=== PATIENT | male | born 1965 | race Caucasian/White ===

== ENCOUNTER 2021-05-20 07:02 | Day surgery (SDC) | payer SELFPAY ==
[~2021-05-20 07:02] MED LIST: CARAFATE1 GM PO; PANTOPRAZOLE SO40 M1 PO
[2021-05-20 09:59] VITALS: BP 144/73
--- NOTE | 2021-05-27 12:22 | NUR ---
PER MD ORDER, PATIENT NOTIFIED OF PATHOLOGY 07/20/20 RESULTS, RECOMMENDED REPEAT COLONOSCOPY IN 3 YEARS. PATIENT VERBALIZED UNDERSTANDING OF EDUCATION PROVIDED. ADVISED TO CONTACT OFFICE IF CHANGES IN SYMPTOMS OR OTHER ISSUES OCCURED. NOTE AND RESULTS FORWARDED TO PCP FOR CONTINUITY OF CARE.
== END 2021-05-20 09:45 | disposition home or self-care (01) | DRG 379 ==
LOC: ENDO 07:02 → ORM 09:30 → ENDO 09:45
PROVIDERS: ATTEND Surgery
PROC: 0DBK8ZX Excision of Ascending Colon, Via Natural or Artificial Opening Endoscopic, Diagnostic (ICD-10-PCS; principal; 2021-05-20)
PROC: 0DB48ZX Excision of Esophagogastric Junction, Via Natural or Artificial Opening Endoscopic, Diagnostic (ICD-10-PCS; 2021-05-20)
DX: K92.2 Gastrointestinal hemorrhage, unspecified (principal); R13.10 Dysphagia, unspecified; D12.2 Benign neoplasm of ascending colon; K64.8 Other hemorrhoids; K22.9 Disease of esophagus, unspecified; Z86.73 Personal history of transient ischemic attack (TIA), and cerebral infarction without residual deficits

== ENCOUNTER 2022-06-27 12:46 | Inpatient (IN) | payer SELFPAY ==
[2022-06-27] VITALS (17 sets, daily range): BP systolic 85–147; BP diastolic 45–81
[~2022-06-27] VITALS: Ht 170.2 cm; Wt 83.0 kg
--- NOTE | 2022-06-27 13:00 | NUR ---
PATIENT TO ROOM 13
--- NOTE | 2022-06-27 13:15 | NUR ---
PATIENT IN NEED OF FREQUENT REDIRECTION.
[2022-06-27 13:20] LABS: URINE BILIRUBIN - DIPSTICK NEGATIVE (NEGATIVE); URINE BLOOD DIPSTICK SMALL (NEGATIVE); URINE COLOR YELLOW; URINE GLUCOSE - DIPSTICK >=1000 mg/dL (NEGATIVE); URINE KETONE NEGATIVE (NEGATIVE); URINE LEUK ESTERASE NEGATIVE (NEGATIVE); URINE PROTEIN - DIPSTICK NEGATIVE (NEG-TRACE); URINE SPECIFIC GRAVITY 1.015; URINE UROBILINOGEN - DIPSTICK 0.2 E.U./dL (0.2)
[2022-06-27 13:23] LABS: URINE NITRITE - DIPSTICK NEGATIVE (Negative)
[2022-06-27 13:24] LABS: URINE WBC 0-2 WBC/hpf (0-5)
[2022-06-27 13:34] LABS: IMMATURE GRANULOCYTES 0.5 % (0.0-5.0); MEAN CORPUSCULAR HGB 35.6 pG CALC (26.0-32.0); MEAN CORPUSCULAR HGB CONC 32.8 g/dL CAL (32.0-36.0); NEUT# 15.21 thou/uL (1.82-7.42); RED BLOOD COUNT 3.43 mill/uL (4.70-6.10); RED CELL DISTRI WIDTH 13.5 % (11.5-15.5)
[2022-06-27 13:37] LABS: HEMATOCRIT 37.2 % (39.0-50.0); HEMOGLOBIN 12.2 g/dl (14.0-18.0); MEAN CELL VOLUME 108.5 fL CALC (80.0-100.0)
[2022-06-27 13:42] LABS: CREATININE 1.6 mg/dL (0.7-1.3); MAGNESIUM 1.5 mg/dL (1.6-2.3); TOTAL PROTEIN 7.2 g/dL (6.3-8.2)
[2022-06-27 13:50] LABS: ALBUMIN 3.2 g/dL (3.2-5.0); BILIRUBIN, TOTAL 1.6 mg/dL (0.0-1.4); POTASSIUM 3.3 mmol/l (3.5-5.1)
--- NOTE | 2022-06-27 13:51 | NUR ---
BLOOD GLUCOSE AND LACTIC RECEIVED BY LAB AND MD NOTIFIED AT THIS TIME. AWAITING ORDERS.
--- NOTE | 2022-06-27 15:59 | NUR ---
REMAINS BEDSIDE WITH PATIENT.
--- NOTE | 2022-06-27 18:26 | NUR ---
CALL FROM ICU TO WAIT 15 MINUTES TO GIVE REPORT.
--- NOTE | 2022-06-27 20:00 | NUR ---
PATIENT IN BED AT THIS TIME. PATIENT ALERT TO NAME AND PLACE AND EXHIBITS SLIGHT ANXIETY AT THIS TIME. PATIENT CURRENTLY FROM ED ON INSULIN DRIP AT 4 UNITS AN HOUR AT THIS TIME. PAITENT LUNG FERRERA ARE CLEAR X 4 BOWEL SOUNDS PRESENT IN ALL FOUR QUADS AND PATITIM IS INCONTINENT OF STOOL AT THIS TIME. LALITTENT HAS NOW EDEMA PRESENT BUT DOES PRESENT WITH ABRASION ON LEFT SHOULDER AND LEFT KNEE. DR. DESIR CALLED FOR ORDERS AT THIS TIME AND PLACED ON CIWA PROTOCOL DUE TO REPORTED DRINKING OF 0NE 5TH PER DAY OF VODKA FROM . PATIENT CIWA SCORE AT THIS TIME IS 2 WEED CUTTER IS SHOWING HR OF 88 AND IN SINUS.PATIENT DOES FOLLOW COMMANDS AND IS DIRECTABLE. PATIENT HAS ORDOÑEZ CATH AT THIS TIME DRAINING CLEAR YELLOW URINE. SIDERAILS ARE UP CALL LIGHT IS WITHIN REACH. GLUCOSE METER SHOWING 268 AND INSULIN DRIP TITRATED TO 3 UNITS PER HOUR AT THIS TIME. SIDERAILS ARE UP X 2 WILL CONTINUE TO MONITOR.
--- NOTE | 2022-06-27 21:00 | NUR ---
GLUCOSE METER READING 174 INUSLIN DRIP TITRATED TO 2 UNITS PER HOUR.
--- NOTE | 2022-06-27 22:00 | NUR ---
GLUCOSE METER READING IS 146 INSULIN DRIP TITRATED TO 1 UNIT PER HOUR.
[2022-06-27 22:23] LABS: BUN 22 mg/dL (9-20); BUN/CREATININE RATIO 19 (12-20 (CALC)); CREATININE 1.1 mg/dL (0.7-1.3); GFR FOR AFR.AMER. > 60 ML/MIN (>=60 (CALC)); GFR OTHER RACES > 60 ML/MIN (>=60 (CALC)); POTASSIUM 3.3 mmol/l (3.5-5.1)
[2022-06-27 22:40] LABS: ANION GAP 11 (6-22 (CALC)); CARBON DIOXIDE 25 mmol/l (22-30); CHLORIDE 106 mmol/l (95-108); SODIUM 139 mmol/l (137-146)
--- NOTE | 2022-06-27 22:59 | NUR ---
NOTIFIED DR. DESIR REGARDING RECENT ANION GAP 11. ORDER NOTED TO D/C INSULIN DRIP AND STATR PATIENT ON I.V FLUID. NS AT 100 CC/ HR.
[2022-06-28] VITALS (26 sets, daily range): BP systolic 82–128; BP diastolic 48–83
--- NOTE | 2022-06-28 | NUR ---
PATIENT RESTING IN BED AT THIS TIME. CIWA SCORE IS A "0" AT THIS TIME. NEURO CHECKS REMAIN THE SAME. PATIENT IS ALERT AND ORIENTED X 2. PATIENT SIDERAILS ARE UP X 2 ORDOÑEZ PATENT AND DRAINING CLEAR YELLOW URINE. LIBRARIAN HEAD IS SR AND AT 78 HR. WILL CONTINUE TO MONITOR.
--- NOTE | 2022-06-28 | NUR ---
PATIENT RESTING IN BED AT THIS TIME ALERT TO NAME AND PLACE FOLLOWING COMMANDS CIWA SCALE IS "0" AT THIS TIME UI ARCHITECT IS READING SR 80. PATIENT DENIES ANY PAIN CURRENTLY AND ZOYSIN 3.38GM ABX IS CURRENTLY HANGING AT THIS TIME. SIDERAILS ARE UP CALL LIGHT IS WIHTIN REACH. WILL CONTINUE TO MONITOR.
[2022-06-28 02:54] LABS: ANION GAP 6 (6-22 (CALC)); BUN 20 mg/dL (9-20); BUN/CREATININE RATIO 16 (12-20 (CALC)); CARBON DIOXIDE 28 mmol/l (22-30); CHLORIDE 106 mmol/l (95-108); CREATININE 1.2 mg/dL (0.7-1.3); GFR FOR AFR.AMER. > 60 ML/MIN (>=60 (CALC)); GFR OTHER RACES > 60 ML/MIN (>=60 (CALC)); POTASSIUM 3.2 mmol/l (3.5-5.1); SODIUM 137 mmol/l (137-146)
--- NOTE | 2022-06-28 03:53 | NUR ---
PATIENT GIVEN AT THIS TIME 25MG OF LIBRIUM PO AND 2MG OF HALOPERIDOL IV PUSH AT THIS TIME FOR ANXIETY AND RESTLESSNESS. SIDERAILS ARE UP AND PADDED FOR SEIZURE PRECAUTIONS. PATIENT IS ALERT TO NAME AND . WILL CONTINUE TO MONITOR. SMALL ENGINE MECHANIC IS READING SR AT HR OF 87 CIWA IS A 1 AT THIS TIME DUE TO AGGITATTION. ORDOÑEZ CATH REMAINS PATENT AND DRAINING CLEAR URINE AND PATIENT WAS INCONTINENT WIHT SCANT AMOUNT OF BROWN SOFT STOOL. WILL CONTINUE TO MONITOR.
--- NOTE | 2022-06-28 06:10 | NUR ---
PATEINT AWAKE AT THIS TIME FIGITING AND RESTLESS ALERT AND ORIENTED X 3. MANAGER PROGRAMS SHOWING SR AND HR IS 86. PADDED SIDERAILS ARE UP AND CALL LIGHT WITHIN REACH.
[2022-06-28 06:45] LABS: ANION GAP 9 (6-22 (CALC)); BUN 20 mg/dL (9-20); BUN/CREATININE RATIO 18 (12-20 (CALC)); CARBON DIOXIDE 25 mmol/l (22-30); CHLORIDE 106 mmol/l (95-108); CREATININE 1.1 mg/dL (0.7-1.3); GFR FOR AFR.AMER. > 60 ML/MIN (>=60 (CALC)); GFR OTHER RACES > 60 ML/MIN (>=60 (CALC)); POTASSIUM 3.2 mmol/l (3.5-5.1); SODIUM 136 mmol/l (137-146)
[2022-06-28] MEDS ORDERED: SUCRALFATE1 GM PO (07:57)
--- NOTE | 2022-06-28 08:00 | NUR ---
R'CD REPORT FROM YELITZA, PT IS IN BED. PT IS EXTREMELY AGITATED AND THRASHING AROUND TRYING TO GET UP AND LEAVE, FAMILY IS AT BEDSIDE, LUNG SOUNDS ARE CLEAR, PT HAS HAD 2 BM SO FAR, PT ANXIOUS AND PULLING GOWN OFF, PT KEEPS STATING HE WANTS TO LEAVE, A&OX2 PT IS NOT ORIENTED TO PLACE, PT IS ON RA, PT IS NSR ON THE MONITOR. MD HAS BEEN NOTIFIED OF PT STATUS. PT HAS ORDOÑEZ IN PLACE WITH CLEAR YELLOW OUTPUT. BED IN LOWEST POSITION, BED ALARM ON, CALL LIGHT IN REACH, PADDING IS ON SIDE RAILS.
[2022-06-28] MEDS ORDERED: COLCHICINE0.6 M2 PO (08:03)
[2022-06-28] MEDS ORDERED: SERTRALINE50 MG PO (08:08)
[2022-06-28] MEDS ORDERED: PEPCID20 MG PO (08:13)
[2022-06-28] MEDS ORDERED: ASPIRIN81 MG PO (08:14)
[2022-06-28] MEDS ORDERED: ATENOLOL25 MG PO (08:17)
[2022-06-28] MEDS ORDERED: PROTONIX40 M2 PO (08:18)
--- NOTE | 2022-06-28 10:11 | NUR ---
The patient is screened for physical medicine services and no needs are identified at this time
--- NOTE | 2022-06-28 10:21 | NUR ---
pt is calm and sleeping, is at bedside, pt is not in distress
--- NOTE | 2022-06-28 11:32 | NUR ---
pt is waking up and started to get agitated, pt pulling on lines but is not being aggressive
--- NOTE | 2022-06-28 12:14 | NUR ---
PT IS BECOMING ANXIOUS AND AGITATED, IS AT BEDSIDE. ATTEMPTED RELAXATION TECHNIQUES, ENVIRONEMNTAL CHANGES. PT HAS CT SHCEDULED BUT IS TOO AGITATED TO GO AT THIS TIME, NOTIFIED.
--- NOTE | 2022-06-28 13:00 | NUR ---
PT IS GETTING READY TO GO DOWN TO CT, PT MEDICATED PER MAR, NO OTHER CHANGE IN STATUS
--- NOTE | 2022-06-28 14:00 | NUR ---
PT DOWN IN CT
--- NOTE | 2022-06-28 15:00 | NUR ---
PT IS IN BED SLEEPING AND IS CALM, IS AT BEDSIDE
--- NOTE | 2022-06-28 16:03 | NUR ---
PT IS CALM AND RESTING IN BED, STILL AT BEDSIDE
--- NOTE | 2022-06-28 18:05 | NUR ---
PT IS SLEEPING, no change in pt status
--- NOTE | 2022-06-28 18:55 | NUR ---
REPORT RECEIVED FROM SAURABH RANDOLPH. PT RESTING WITH EYES CLOSED. EASILY AROUSED. IVF INFUSING WITHOUT DIFFICULTY. VSS. NO DISTRESS.
--- NOTE | 2022-06-28 19:00 | NUR ---
SEIZURE PRECAUTIONS IN USE
--- NOTE | 2022-06-28 21:00 | NUR ---
GENERAL WEAKNESS NOTED. ASSISTED PATIENT WITH MOVING UP IN BED. WARM BLANKETS GIVEN. NO DISTRESS. PT STATES, "I'M READY TO GO HOME." EXPLAINED TO PATIENT THAT IT IS NIGHT TIME AND HE IS STILL IN THE ICU. ADVISED PATIENT THAT HIS WILL BE BACK TOMORROW TO SEE HIM. PT CALM AND RESPONDS, "OKAY."
--- NOTE | 2022-06-28 22:09 | NUR ---
BEDPAN REMOVED. NO BM AT THIS TIME.
--- NOTE | 2022-06-28 22:25 | NUR ---
AGITATION NOTED. PT PULLING OF ENDLESS BED DRUM SANDER LEADS. PT REMOVING GOWN. PT CALLING FOR "AFTAB." EMOTIONAL SUPPORT PROVIDED. PT MEDICATED WITH ATIVAN PER PRN ORDER.
--- NOTE | 2022-06-28 22:53 | NUR ---
AGITATION REMAINS. PT REMOVED GOWN, BLANKETS, MONITOR LEADS AND PULSE OX. PT ATTEMPTING TO GET OUT OF BED TO "GO HOME TO SLEEP IN MY OWN BED." PT ORIENTED TO PERSON AND PLACE. STATES MONTH IS . PT REORIENTED. LEADS AND PULSE OX REPLACED.
--- NOTE | 2022-06-28 23:30 | NUR ---
PT RESTING QUIETLY WITH EYES CLOSED. EASILY AROUSED.
[2022-06-29] VITALS (41 sets, daily range): BP systolic 102–146; BP diastolic 59–87
--- NOTE | 2022-06-29 00:05 | NUR ---
AGITATION NOTED. PT REMOVED GOWN, BLANKETS, MONITOR LEADS, AND PULSE OX. PT ATTEMPTING TO GET OUT OF BED TO GO HOME. PT REORIENTED, GOWN, BLANKETS, AND MONITORING LEADS REPLACED. PT MEDICATED PER PRN ORDERS.
--- NOTE | 2022-06-29 01:03 | NUR ---
PT RESTING QUIETLY WITH EYES CLOSED.
--- NOTE | 2022-06-29 02:22 | NUR ---
PT INCONTINENT OF STOOL. PT CLEANED AND LINEN CHANGED.
--- NOTE | 2022-06-29 02:52 | NUR ---
, AFTAB, CALLED FOR UPDATE. PT RESTING AT THIS TIME. UPDATE GIVEN.
--- NOTE | 2022-06-29 04:54 | NUR ---
PT AWAKE, IMPULSIVE AND AGITATED. MEDICATED PRT PRN ORDERS. FREQUENT REDIRECTION AND CLOSE OBSERVATION TO MAINTAIN SAFETY.
[2022-06-29 05:22] LABS: HEMOGLOBIN 10.3 g/dl (14.0-18.0); IMMATURE GRANULOCYTES 0.2 % (0.0-5.0); MEAN CELL VOLUME 107.4 fL CALC (80.0-100.0); MEAN CORPUSCULAR HGB 36.3 pG CALC (26.0-32.0); MEAN CORPUSCULAR HGB CONC 33.8 g/dL CAL (32.0-36.0); NEUT# 7.5 thou/uL (1.82-7.42); RED BLOOD COUNT 2.84 mill/uL (4.70-6.10); RED CELL DISTRI WIDTH 14.1 % (11.5-15.5)
[2022-06-29 05:42] LABS: ALKALINE PHOSPHATASE 519 u/l (38-126); ANION GAP 7 (6-22 (CALC)); BILIRUBIN, TOTAL 1.5 mg/dL (0.0-1.4); BUN 15 mg/dL (9-20); BUN/CREATININE RATIO 14 (12-20 (CALC)); CARBON DIOXIDE 26 mmol/l (22-30); CHLORIDE 108 mmol/l (95-108); CREATININE 1.1 mg/dL (0.7-1.3); GFR FOR AFR.AMER. > 60 ML/MIN (>=60 (CALC)); GFR OTHER RACES > 60 ML/MIN (>=60 (CALC)); POTASSIUM 2.8 mmol/l (3.5-5.1); SGOT/AST 233 u/l (17-59); SODIUM 138 mmol/l (137-146)
[2022-06-29 05:45] LABS: ALBUMIN 2.2 g/dL (3.2-5.0); TOTAL PROTEIN 5.5 g/dL (6.3-8.2)
[2022-06-29 06:02] LABS: HEMATOCRIT 30.5 % (39.0-50.0)
--- NOTE | 2022-06-29 06:02 | NUR ---
AGITATION NOTED. MEDICATION ADMINISTERED PER PRN ORDERS. PT WITH INTERMITTENT TREMORS. CLAUDIO SEIZURE-LIKE ACTIVITY THIS SHIFT. REST ENCOURAGED. FREQUENT RE-ORIENTATION AND ENCORAGEMENT TO REMAIN IN BED. NO DISTRESS.
--- NOTE | 2022-06-29 07:10 | NUR ---
REPORT GIVEN TO SAURABH HUGHES. PT RESTING QUIETLY WITH EYES CLOSED. VSS. NO DISTRESS.
--- NOTE | 2022-06-29 07:45 | NUR ---
PT VSS - Pt agitated, phoned for ativan drip order - ativan gtt started at 2 for pt pulling at lines/agitation - no s/s distress - CIWA = 11 currently- call light in reach
--- NOTE | 2022-06-29 09:40 | NUR ---
Pt on 4 on ativan gtt due to pulling at lines and agitation - pt tolerating ativan fine, vss - pt resting in bed currently with at bedside - have lights dim and low stimulation -rass being done q 1hr as well as intake and output - call light and personal belongings in reach
[2022-06-29 10:26] LABS: INTERNATIONAL NORMALIZED RATIO 1.2 RATIO (0.7-1.3); PROTHROMBIN TIME 11.4 SECONDS (9.0-12.5)
--- NOTE | 2022-06-29 10:32 | NUR ---
PT EVAL ATY BEDSIDE
--- NOTE | 2022-06-29 11:14 | NUR ---
Pt still currently at 4 on ativan gtt - VSS- resting in bed comfortably - no s/s distress - 11 glucose was 161 and will cover as per MD order - pt currently has banana bag, k and mag running to replace electrolytes per order - call light in reach
--- NOTE | 2022-06-29 13:45 | NUR ---
Pt ativan turned down to 2 so he could particapte in swallow eval with speech therapist - pt however failed and is being made NPO - MD notified about speech therapist reccomendation - ativan put back to 4 as pt pulling at all lines and agitated - and call light at bedside - no s/s distress
--- NOTE | 2022-06-29 15:44 | NUR ---
Pt CIWA=11- no s/s distress - VSS - pt still on 4 on the ativan gtt - arousable to voice and pain - call light in reach
--- NOTE | 2022-06-29 17:32 | NUR ---
Pt resting in bed - seizure precautions in place - no s/s distress - VSS - CIWA= 11 - -2 RASS score which is unchanged from previous - Pt repostioned - Call light and near bedside
--- NOTE | 2022-06-29 20:00 | NUR ---
PT RESTING WITH EYES CLOSED, VSS
--- NOTE | 2022-06-29 22:00 | NUR ---
PT RESTING WITH EYES CLOSED. TRIED TITRATING ATIVAN GTT DOWN TO 15ML/HR AND PT DID NOT TOLERATE, RR INCREASED TO 40 AGAIN AND BECOME VERY FIGITY. GTT TITRATED BACK TO 20ML/HR. PT TOLERATING WELL. RR 25. VSS.
[2022-06-30] VITALS (49 sets, daily range): BP systolic 125–168; BP diastolic 76–100
--- NOTE | 2022-06-30 | NUR ---
PT RESTING WITH EYES CLOSED, PT BECOME INCREASINGLY AGITATED ONE HR AGO, FIDGITING AND RR 40-45, GTT INCREASED TO 5 mg/hr. VSS. RR DOWN TO 25.
--- NOTE | 2022-06-30 01:39 | NUR ---
PT GTT INCREASED TO 6MG/HR DUE TO INCREASED ANXIOUSNESS AND RR IN THE 40'S AGAIN. ALL OTHER VSS.
--- NOTE | 2022-06-30 02:00 | NUR ---
PT RESTING WITH EYES CLOSED BUT MUMBLING AND RR WILL GO DOWN TO 25 AND STILL GOES BACK UP TO 40-45. COUGHS OCCASIONALLY AND SOUNDS WET BUT LUNG FERRERA ARE CLEAR UPON AUSCULTATION. O2 REMAINS STABLE. ATIVAN GTT MAXED OUT STILL AT 6MG/HR - 30ML/HR.
--- NOTE | 2022-06-30 04:00 | NUR ---
PT RESTING WITH EYES CLOSED, RR REMAIN UP 40 AND DOWN 25.
[2022-06-30 05:16] LABS: HEMOGLOBIN 9.8 g/dl (14.0-18.0); IMMATURE GRANULOCYTES 0.2 % (0.0-5.0); MEAN CELL VOLUME 108.2 fL CALC (80.0-100.0); MEAN CORPUSCULAR HGB 36.6 pG CALC (26.0-32.0); MEAN CORPUSCULAR HGB CONC 33.8 g/dL CAL (32.0-36.0); NEUT# 7.25 thou/uL (1.82-7.42); RED BLOOD COUNT 2.68 mill/uL (4.70-6.10); RED CELL DISTRI WIDTH 14.5 % (11.5-15.5)
[2022-06-30 05:27] LABS: ALBUMIN 2.5 g/dL (3.2-5.0); ALKALINE PHOSPHATASE 480 u/l (38-126); ANION GAP 8 (6-22 (CALC)); BILIRUBIN, TOTAL 1.3 mg/dL (0.0-1.4); BUN 10 mg/dL (9-20); BUN/CREATININE RATIO 11 (12-20 (CALC)); CARBON DIOXIDE 25 mmol/l (22-30); CHLORIDE 115 mmol/l (95-108); CREATININE 0.9 mg/dL (0.7-1.3); GFR FOR AFR.AMER. > 60 ML/MIN (>=60 (CALC)); GFR OTHER RACES > 60 ML/MIN (>=60 (CALC)); MAGNESIUM 1.5 mg/dL (1.6-2.3); POTASSIUM 3.2 mmol/l (3.5-5.1); SGOT/AST 127 u/l (17-59)
[2022-06-30 05:32] LABS: SODIUM 145 mmol/l (137-146)
--- NOTE | 2022-06-30 06:00 | NUR ---
PT CLEANED, NEW LINENS, ORDOÑEZ CARE, PARINEAL CARE DONE, PT ROLLED Q2 HRS. PT HAS HAD WET SOUNDING COUGH, LUNGS ARE CLEAR, JUST SALIVA IN BACK OF THROAT. PT UO HAS DECREASED TO 37.5ML/HR IN THE LAST 4 HOURS FROM 50ML/HR. RR STAYING IN 30-40'S WHEN PT IS AWAKE. STILL MAXED ON ATIVAN GTT AT 6MG/HR OF A 40MG/250ML BAG OF NS. PT STILL RESTLESS. O2 IS STABLE.
--- NOTE | 2022-06-30 07:00 | NUR ---
REPORT RECEIVED FROM LENS GRINDER RN - PT IN BED IN STABLE CONDITION - SEIZURE PRECAUTIONS IN PLACE - VSS - PT ON 6 ON ATIVAN GTT - CIWA OF 11 AND -2 RASS - NO S/S DISTRESS - CALL LIGHT IN REACH
--- NOTE | 2022-06-30 09:21 | NUR ---
Pt working with patient right now - sedation dropped to 4 with a plan to go to 2 by 11 am for speech to evaluate - pt vss - no s/s distress - is bedside as well keeping patient calm - seizure precautions in place - ciwa is a 9 - -2 RASS - call light in reach
--- NOTE | 2022-06-30 11:00 | NUR ---
Sedation lowered to allow speech therapy to do her evaluation - is bedside - pt is stable - seizure precautions in place - titrating ativan as needed - call light in reach
--- NOTE | 2022-06-30 13:00 | NUR ---
Pt resting in bed - no s/s distress - bedside - pt vss - call light and personal belongings in reach
--- NOTE | 2022-06-30 15:05 | NUR ---
Pt resting in bed - turned q2 - still on ativan gtt at 3 - ciwa=9 - vss - seizure precautions in place - call light and at bedside
--- NOTE | 2022-06-30 20:00 | NUR ---
PT STILL ON 3MG/HR ATIVAN GTT AND RESTING WITH EYES CLOSED. VSS, BUT STAYS TACHYPNEIC BETWEEN 30-40BPM. SHALLOW AND UNLABORED. LUNG FERRERA CLEAR.
--- NOTE | 2022-06-30 22:00 | NUR ---
PT HAD GREEN MUCOUS BOWEL MOVEMENT. BATHED PATIENT, APPLIED MEPEPLEX ON COCCYX. PT COUGHING ON PHLEGM IN BACK OF THROAT, SUCTIONED PT AND MOUTH CARE PROVIDED AT THIS TIME. PT WILL OPEN HIS EYES BUT WONT KEEP EYE CONTACT. HE IS LESS ANXIOUS TONIGHT THAN THE PREVIOUS NIGHT.
[2022-07-01] VITALS (51 sets, daily range): BP systolic 119–171; BP diastolic 63–104
--- NOTE | 2022-07-01 00:05 | NUR ---
PT RESTING IN BED WITH EYES CLOSED.
--- NOTE | 2022-07-01 02:00 | NUR ---
PT RESTING IN BED WITH EYES CLOSED. ATIVAN GTT AT 4MG/HR.
--- NOTE | 2022-07-01 04:00 | NUR ---
PT RESTING WITH EYES CLOSED. NT SUCTIONED PT TO GET SECRETIONS OUT BECAUSE PT WAS COUGHING FROM IT SETTLING IN THROAT BUT WHEN I TRIED TO ORAL SUCTION HIM HE CLINCHED JAW AND SHOOK HEAD. COULD NOT GET TO THE BACK OF HIS THROAT. SECRETIONS TONIGHT HAVE BEEN TINGED WITH BLOOD AND THICK. PT TOLERATED NT SUCTIONING WELL. DECREASED HIS COUGH TREMENDOUSLY.
[2022-07-01 05:21] LABS: HEMATOCRIT 31.3 % (39.0-50.0); HEMOGLOBIN 10.4 g/dl (14.0-18.0); MEAN CELL VOLUME 110.6 fL CALC (80.0-100.0); MEAN CORPUSCULAR HGB 36.7 pG CALC (26.0-32.0); MEAN CORPUSCULAR HGB CONC 33.2 g/dL CAL (32.0-36.0); RED BLOOD COUNT 2.83 mill/uL (4.70-6.10)
[2022-07-01 05:31] LABS: ALBUMIN 2.5 g/dL (3.2-5.0); ALKALINE PHOSPHATASE 552 u/l (38-126); ANION GAP 7 (6-22 (CALC)); BILIRUBIN, TOTAL 1.3 mg/dL (0.0-1.4); BUN 6 mg/dL (9-20); BUN/CREATININE RATIO 8 (12-20 (CALC)); CARBON DIOXIDE 23 mmol/l (22-30); CHLORIDE 118 mmol/l (95-108); CREATININE 0.8 mg/dL (0.7-1.3); GFR FOR AFR.AMER. > 60 ML/MIN (>=60 (CALC)); GFR OTHER RACES > 60 ML/MIN (>=60 (CALC)); MAGNESIUM 1.4 mg/dL (1.6-2.3); POTASSIUM 3.4 mmol/l (3.5-5.1); SGOT/AST 123 u/l (17-59); SODIUM 144 mmol/l (137-146); TOTAL PROTEIN 6.2 g/dL (6.3-8.2)
--- NOTE | 2022-07-01 06:00 | NUR ---
PT RESTING WITH EYES CLOSED. PT ATIVAN GTT RAN OUT, MIXED 250ML 0.9% NS WITH 40MG OF ATIVAN INSTEAD OF 200ML OF 0.9% NS.. HUNG BAG AT 0600 AND INCREASED RATE FROM 4MG/HR TO 5MG/HR AND WILL CALL PHARMACY AT 0700 TO MIX A NEW UNDILUTED BAG OF ATIVAN. WILL LET ONCOMING RN KNOW WELL.
--- NOTE | 2022-07-01 07:41 | NUR ---
NIGHTSHIFT REPORT RECEIVED, ATIVAN GTT INFUSING, AUDIBLE WHEEZING/GURGLING HEARD, PT HAS EYES CLOSED BUT WILL OPEN EYES WHEN DIRECTLY SPEAKING TO HIM TO ANSWER A QUESTION.
--- NOTE | 2022-07-01 09:14 | NUR ---
PTS FAMILY AT BEDSIDE. ATIVAN DRIP REMAINS ON
--- NOTE | 2022-07-01 10:35 | NUR ---
WILL BEGIN TO TITRATE ATIVAN DRIP DOWN TO SEE WHERE PTS BASELINE IS AT T HIS POINT IN HIS TREATMENT. FAMILY IS GOING TO BE AT BEDSIDE.
--- NOTE | 2022-07-01 14:12 | NUR ---
PT RESTING QUIETLY AT THIS TIME WITH FAMILY AT BEDSIDE, ATIVAN IS DOWN TO A 2, PT WILL WAKE UP WHEN NAME IS CALLED, IS COUGHING AND CLEARING THROAT ON HIS OWN. NO DISTRESS OR AGITATION AT THIS TIME.
--- NOTE | 2022-07-01 16:02 | NUR ---
PT RESTING QUIETLY ON BED, RESPONDS TO VOICE COMMANDS WITH OPENING EYES AND MUMBLING.
--- NOTE | 2022-07-01 21:00 | NUR ---
assed pt seems drowsy, and requiring O2. placed NS @t 5L/m, pt using assesory muscle to breath, Spo2 @ 87-90, will contie to monitor pt closely.
[2022-07-02] VITALS (47 sets, daily range): BP systolic 124–170; BP diastolic 65–106
--- NOTE | 2022-07-02 00:52 | NUR ---
called Dr. mccoy regarding pt condition, pt seem drowsy and pale, desaturation to 85 spo2, order for B-pap, laxis, and ativan given. will continue to monitor pt.
--- NOTE | 2022-07-02 05:01 | NUR ---
ASSESSED PT HEMODINAMIC STABLE, spo2 95, B-pap is working for the pt, resting calm in bed , will continue to monitor.
[2022-07-02 05:47] LABS: BASO% 0.8 % (0-3); EOS% 1.6 % (0-8); HEMATOCRIT 31.1 % (39.0-50.0); HEMOGLOBIN 10.1 g/dl (14.0-18.0); IMMATURE GRANULOCYTES 0.3 % (0.0-5.0); LYMPH% 13.2 % (15-41); MEAN CELL VOLUME 111.1 fL CALC (80.0-100.0); MEAN CORPUSCULAR HGB 36.1 pG CALC (26.0-32.0); MEAN CORPUSCULAR HGB CONC 32.5 g/dL CAL (32.0-36.0); MONO% 8.2 % (2-13); NEUT# 9.03 thou/uL (1.82-7.42); NEUT% 75.9 % (42-76); RED BLOOD COUNT 2.8 mill/uL (4.70-6.10); RED CELL DISTRI WIDTH 15.1 % (11.5-15.5)
[2022-07-02 06:16] LABS: ALBUMIN 2.7 g/dL (3.2-5.0); ALKALINE PHOSPHATASE 463 u/l (38-126); ANION GAP 12 (6-22 (CALC)); BILIRUBIN, TOTAL 1.6 mg/dL (0.0-1.4); BUN 8 mg/dL (9-20); BUN/CREATININE RATIO 9 (12-20 (CALC)); CARBON DIOXIDE 23 mmol/l (22-30); CHLORIDE 119 mmol/l (95-108); CREATININE 0.9 mg/dL (0.7-1.3); GFR FOR AFR.AMER. > 60 ML/MIN (>=60 (CALC)); GFR OTHER RACES > 60 ML/MIN (>=60 (CALC)); MAGNESIUM 1.2 mg/dL (1.6-2.3); POTASSIUM 3.5 mmol/l (3.5-5.1); SGOT/AST 94 u/l (17-59); SODIUM 151 mmol/l (137-146); TOTAL PROTEIN 6.5 g/dL (6.3-8.2)
--- NOTE | 2022-07-02 06:47 | NUR ---
ELVIEAP STANDBY. PT ON 2L NC.
--- NOTE | 2022-07-02 15:22 | NUR ---
S: MAMADOU CABRERA is a 57 M who presents with sepsis pneumonia. He has a history of diabetes mellitus. All medications in patient's chart were reviewed. O: VS: BP 160/86 mmHg, P 95 bpm, RR 23,T 97.3 W 82 kg, HT 67 in., Scr= 0.9, CrCl= 105 ml/min A: Blood culture is pending. P: Patient is on Zosyn 4.5 gm IV Q6h. Vancomycin ordered for pharmacy to dose. Start Vancomycin 1000mg IV Q8H. Vancomycin trough is drawn before the 4th dose on 07/03/22 @ 1130. Vancomycin goal trough is between 15-20 mcg/ml. Pharmacy will follow and or advise on antibiotics use as needed.
[2022-07-03] VITALS (36 sets, daily range): BP systolic 100–162; BP diastolic 46–111
[2022-07-03 06:40] LABS: HEMATOCRIT 28.7 % (39.0-50.0); HEMOGLOBIN 9.3 g/dl (14.0-18.0); MEAN CELL VOLUME 112.1 fL CALC (80.0-100.0); MEAN CORPUSCULAR HGB 36.3 pG CALC (26.0-32.0); MEAN CORPUSCULAR HGB CONC 32.4 g/dL CAL (32.0-36.0); RED BLOOD COUNT 2.56 mill/uL (4.70-6.10); RED CELL DISTRI WIDTH 14.5 % (11.5-15.5)
[2022-07-03 07:00] LABS: ALBUMIN 2.2 g/dL (3.2-5.0); ALKALINE PHOSPHATASE 371 u/l (38-126); BUN 15 mg/dL (9-20); BUN/CREATININE RATIO 17 (12-20 (CALC)); CHLORIDE 118 mmol/l (95-108); CREATININE 0.9 mg/dL (0.7-1.3); GFR FOR AFR.AMER. > 60 ML/MIN (>=60 (CALC)); GFR OTHER RACES > 60 ML/MIN (>=60 (CALC)); POTASSIUM 3.6 mmol/l (3.5-5.1); SGOT/AST 50 u/l (17-59); SODIUM 148 mmol/l (137-146); TOTAL PROTEIN 5.6 g/dL (6.3-8.2)
[2022-07-03 07:01] LABS: ANION GAP 6 (6-22 (CALC)); BILIRUBIN, TOTAL 0.9 mg/dL (0.0-1.4); CARBON DIOXIDE 28 mmol/l (22-30); MAGNESIUM 1.6 mg/dL (1.6-2.3)
--- NOTE | 2022-07-03 08:00 | NUR ---
GOT REPORT FROM GAUGER CHIEF NURSE. PATIENT IN BED SLEEPING. PATIENT ASSESSED. UNABLE TO DETERMINE ORIENTATION AT THIS TIME. PATIENT DOES AROUSE WHEN NAME IS CALLED. WHEN SPEAKING HIS WORDS ARE VERY GARBLED. TURNED PATIENT TO HIS RIGHT SIDE. IV MEDICATIONS GIVEN TO PATIENT. IS NOW IN ROOM WITH PATIENT. INFORMED PATIENT'S SPOUSE THAT THE GOAL FOR HIM RIGHT NOW IS TO BECOME MORE ALERT. SPOUSE UNDERSTANDS. CALL LIGHT NEXT TO PATIENT AND SPOUSE AWARE THAT IF SHE OR HE NEEDED ANYTHING TO USE CALL LIGHT. SHE VERBALIZED UNDERSTANDING.
--- NOTE | 2022-07-03 10:00 | NUR ---
PATIENT RESTING IN BED WATCHING TV. PATIENT HAS NO SXS OF DISTRESS OR DISCOMFORT. SPOUSE ALSO AT BEDSIDE, CALL LIGHT AND BED SIDE TABLE STILL WITH IN REACH AND ADVISED TO CALL IF NEEDING ANYTHING. PATIENT VERBALIZED UNDERSTANDING.
--- NOTE | 2022-07-03 12:00 | NUR ---
PATIENT RESTING IN BED WATCHING TV. PATIENT HAS NO SXS OF DISTRESS OR DISCOMFORT. ADVISED TO CALL IF NEEDING ANYTHING. PATIENT VERBALIZED UNDERSTANDING.
--- NOTE | 2022-07-03 14:00 | NUR ---
PATIENT RESTING IN BED. NO SXS OF DISTRESS OR DISCOMFORT.
--- NOTE | 2022-07-03 16:00 | NUR ---
PATIENT HAD BM. CLEAN AND CHANGED LINEN. PATIENT TOLERTED WELL.
--- NOTE | 2022-07-03 19:10 | NUR ---
TRANSFERED TO [place] AND GAVE REPORT TO CLINICAL RESEARCH ANALYST NURSE.
--- NOTE | 2022-07-03 19:40 | NUR ---
RECEIVED REPORT FROM NURSE SHELBI PATIENT ALERT TO SELF, SPEECH GARBLED, CIWA SCORE 5, HAS DUAL LUMEN PICC LINE P[ATENT FHUSES WELL, ON BED ALARM, BREATHING UNLABORED, CALL LIGHT IN REACH.
--- NOTE | 2022-07-03 20:00 | NUR ---
RECEIVED REPORT FROM NURSE SHELBI, PATIENT RESTING IN BED, WITH ONGOING IV JIMBO DUAL LUMEN PICC D51/2 NS WITH 40 MEQ KCL INFUSING WELL @ 50CC/HR, REMAINS ON TELEMETRY AND HOOKED ON CONTINUOUS PULSE OX AT 100%, LUNG SOUNDS CLEAR, ACTIVE BOWEL SOUNDS, PATIENT ALERT TO SELF RESPONDS WITH NAME KENTON, SPEECH GARBLED, HAS INDWELLING ORDOÑEZ CATHETER DRAINING YELLOW URINE, PATIENT TRIES TO REMOVE TELEMTRY AND WILL TUG ON HIS CATHETER, BED ALARM IN PLACE.
--- NOTE | 2022-07-04 00:57 | NUR ---
PATIENT RESTING IN BED, EYES CLOSED, RESPONDS TO NAME, PATIENT REPEATEDLY PULLS TELEMETRY, NO DISCOMFORST NOTED AT THIS TIME, BREATHING UNLABORED CALL LIGHT IN REACH.
--- NOTE | 2022-07-04 03:59 | NUR ---
PATIENT RESTING IN BED, EASY TO AWAKEN, BREATHING UNLBARED, BLOOD OBTAINED FROM PICC, FLSUHED, CALL LIGHT IN REACH.
[2022-07-04 04:12] VITALS: BP 161/85
[2022-07-04 06:03] LABS: ALBUMIN 2.3 g/dL (3.2-5.0); ALKALINE PHOSPHATASE 375 u/l (38-126); ANION GAP 8 (6-22 (CALC)); BILIRUBIN, TOTAL 0.8 mg/dL (0.0-1.4); BUN 20 mg/dL (9-20); BUN/CREATININE RATIO 22 (12-20 (CALC)); CARBON DIOXIDE 28 mmol/l (22-30); CHLORIDE 119 mmol/l (95-108); CREATININE 0.9 mg/dL (0.7-1.3); GFR FOR AFR.AMER. > 60 ML/MIN (>=60 (CALC)); GFR OTHER RACES > 60 ML/MIN (>=60 (CALC)); HEMATOCRIT 28.7 % (39.0-50.0); HEMOGLOBIN 9.5 g/dl (14.0-18.0); MAGNESIUM 1.6 mg/dL (1.6-2.3); MEAN CELL VOLUME 108.7 fL CALC (80.0-100.0); MEAN CORPUSCULAR HGB CONC 33.1 g/dL CAL (32.0-36.0); POTASSIUM 3.9 mmol/l (3.5-5.1); RED BLOOD COUNT 2.64 mill/uL (4.70-6.10); RED CELL DISTRI WIDTH 14.4 % (11.5-15.5); SGOT/AST 53 u/l (17-59); SODIUM 151 mmol/l (137-146)
[2022-07-04 06:35] VITALS: BP 165/77
[2022-07-04 10:00] VITALS: BP 165/80
--- NOTE | 2022-07-04 10:49 | NUR ---
PT SEEN AWAKE, INTERACTIVE, ATTEMPTS TO RESPOND WHEN ASKED QUESTIONS. PT SEEN OOB AT THIS TIME IN CHAIR WITH HELP FROM PHYSICAL THERAPY. HAS BEEN AT BEDSIDE. PT PROVIDED APPLESAUCE FOR PO MEDS, WAS ABLE TO SWALLOW WITHOUT CHOKING. WILL ADVANCE MEAL PER DR HEMPHILL'S OK.
--- NOTE | 2022-07-04 13:39 | NUR ---
PT OOB IN CHAIR, BUT TRIES TO GET OUT OF CHAIR, RETURNED TO BED. PT SWALLOWED APPLESAUCE WELL THIS MORNING, DIET ADVANCED TO PUREED. HE DID FAIR WITH THIS, BUT DID COUGH SEVERAL TIMES ALONG THE WAY.
[2022-07-04 14:30] VITALS: BP 167/86
--- NOTE | 2022-07-04 16:13 | NUR ---
PT PROVIDED SMALL SIPS OR BITES OF FOOD, APPEARS TO DO WELL WITH SWALLOWING THEM. PT REMOVED MONITORS OFTEN, NOT REMEMBERING TO LEAVE ALONE INSTRUCTED.
[2022-07-04 18:39] VITALS: BP 143/72
--- NOTE | 2022-07-04 19:22 | NUR ---
RECEIVED REPORT FROM NURSE RIOS, PATIENT RESTING IN BED, APPEARS TO BE SLEEPUING WITH EYES CLOSED, ON TELEMETRY. AND CONTINUOUS PULSE OXIMETRY, INDWELLIONG ORDOÑEZ CATHETER DRAINING YELLOW COLORED URINE, BED ALARM IN PLACE, CALL LIGHT IN REACH.
[2022-07-04 23:28] VITALS: BP 170/80
[2022-07-05] VITALS (7 sets, daily range): BP systolic 142–186; BP diastolic 78–103
--- NOTE | 2022-07-05 | NUR ---
PATIENT RESTING IN BED, EASY TO AWAKEN, RESPONDS TO NAME KENTON, SPEECH GARBLED, CIWA SCORE 2, INCONTINENT CARE PROVIDED CALL LIGHT IN REACH.
--- NOTE | 2022-07-05 08:00 | NUR ---
RCD REPORT FROM NIGHTSHIFT, PT IS AWAKE AND AGITATED, PT IS TRYING TO REMOVE ORDOÑEZ AND LINES, PT BECAME VIOLENT, DR PLACED ORDER FOR SOFT WRIST RESTRAINTS, RESTRAINTS WERE PLACED, PT REFUSING TO EAT AND TAKE MEDICINE, PT IS ON RA OXYGEN, LUNGS ARE DIMINSHED, PT NOT COUGHING, BED IN LOWEST POSITION,
--- NOTE | 2022-07-05 10:00 | NUR ---
IS AT BEDSIDE, PT HAS CALMED DOWN SOME AND IS CURRENTLY RESTING
--- NOTE | 2022-07-05 12:00 | NUR ---
PT IS VERY AGITATED AGIN AND WANTS TO LEAVE, PT IS NOT ORIENTED, IS AT BEDSIDE, NO OTHER CHANGE IN STATUS
[2022-07-05 14:06] LABS: HEMOGLOBIN 11.2 g/dl (14.0-18.0); MEAN CELL VOLUME 115.2 fL CALC (80.0-100.0); MEAN CORPUSCULAR HGB 35.6 pG CALC (26.0-32.0); MEAN CORPUSCULAR HGB CONC 30.9 g/dL CAL (32.0-36.0); RED BLOOD COUNT 3.15 mill/uL (4.70-6.10); RED CELL DISTRI WIDTH 14.5 % (11.5-15.5)
--- NOTE | 2022-07-05 14:06 | NUR ---
PT IS IN BED CALM WITH AT BEDSIDE, NO CHANGE IN PT STATUS
[2022-07-05 14:10] LABS: HEMATOCRIT 36.3 % (39.0-50.0)
[2022-07-05 14:19] LABS: ALBUMIN 2.7 g/dL (3.2-5.0); ALKALINE PHOSPHATASE 467 u/l (38-126); ANION GAP 9 (6-22 (CALC)); BILIRUBIN, TOTAL 1.3 mg/dL (0.0-1.4); BUN 21 mg/dL (9-20); BUN/CREATININE RATIO 25 (12-20 (CALC)); CARBON DIOXIDE 27 mmol/l (22-30); CHLORIDE 119 mmol/l (95-108); CREATININE 0.8 mg/dL (0.7-1.3); GFR FOR AFR.AMER. > 60 ML/MIN (>=60 (CALC)); GFR OTHER RACES > 60 ML/MIN (>=60 (CALC)); MAGNESIUM 1.5 mg/dL (1.6-2.3); POTASSIUM 3.8 mmol/l (3.5-5.1); SGOT/AST 103 u/l (17-59); SODIUM 151 mmol/l (137-146); TOTAL PROTEIN 6.7 g/dL (6.3-8.2)
--- NOTE | 2022-07-05 16:00 | NUR ---
PT IS CALM AND RELAXED, IS AT BEDSIDE, NO OTHER CHANGE IN STATUS
--- NOTE | 2022-07-05 18:02 | NUR ---
PT IS SLEEPING, LEFT A WHILE AGO TO LET HIM SLEEP, NO CHANGE IN PT STATUS
--- NOTE | 2022-07-06 00:30 | NUR ---
PATIENT RESTING IN BED-ZOSYN HUNG ORDERED AND INFUSING VIA RIGHT PICC ORDERED. WRIST RESTRAINTS WERE RELEASED AND REAPPLIED FOR PATIENT SAFETY. AROUSABLE WHEN SPOKEN TO. OFFERED PO FLUIDS BUT DECLINED. TELE MONITOR IN PLACE. ORDOÑEZ CATH INTACT AND DRAINING YELLOW URINE. BED ALARM IN PLACE FOR PATIENT SAFETY. CALL LIGHT IN REACH. WILL CONT TO MONITOR.
--- NOTE | 2022-07-06 04:23 | NUR ---
PATIENT RESTING IN BED WITH EYES CLOSED. RESPS ARE EVEN AND UNLABORED. LAB WORK DRAWN FROM PICC-GOOD BLOOD RETURN. FLUSHED PER PROTOCL. IVF PATENT AND INFUSING VIA PICC AT 50CC/HR. ORDOÑEZ PATENT AND DRAINING CLOUDY YELLOW URINE. SOFT WRIST RESTRAINTS IN PLACE FOR PATIENT PROTECTION FROM PULLING AT TUBING OR IV'S. TELE MONITOR IN PLACE. CALL LIGHT IN REACH. WILL CONT TO MONITOR.
[2022-07-06 04:38] VITALS: BP 155/81
[2022-07-06 05:17] LABS: MEAN CORPUSCULAR HGB 35.5 pG CALC (26.0-32.0); MEAN CORPUSCULAR HGB CONC 31.7 g/dL CAL (32.0-36.0); RED BLOOD COUNT 2.59 mill/uL (4.70-6.10); RED CELL DISTRI WIDTH 14.7 % (11.5-15.5)
[2022-07-06 05:22] LABS: HEMOGLOBIN 9.2 g/dl (14.0-18.0)
[2022-07-06 05:37] LABS: ALKALINE PHOSPHATASE 376 u/l (38-126); ANION GAP 3 (6-22 (CALC)); BILIRUBIN, TOTAL 0.8 mg/dL (0.0-1.4); BUN 16 mg/dL (9-20); BUN/CREATININE RATIO 20 (12-20 (CALC)); CARBON DIOXIDE 29 mmol/l (22-30); CHLORIDE 120 mmol/l (95-108); CREATININE 0.8 mg/dL (0.7-1.3); GFR FOR AFR.AMER. > 60 ML/MIN (>=60 (CALC)); GFR OTHER RACES > 60 ML/MIN (>=60 (CALC)); MAGNESIUM 1.4 mg/dL (1.6-2.3); POTASSIUM 3.3 mmol/l (3.5-5.1); SGOT/AST 69 u/l (17-59); SODIUM 149 mmol/l (137-146); TOTAL PROTEIN 5.4 g/dL (6.3-8.2)
[2022-07-06 05:47] LABS: ALBUMIN 2.1 g/dL (3.2-5.0)
[2022-07-06 06:30] VITALS: BP 147/77
--- NOTE | 2022-07-06 07:36 | NUR ---
PT RESTING IN LOW FOWLERS POSITION. PT RESTING WITH EYES CLOSED. PT HEART RHYTHM ON TELE. IV PICC LINE NOTED INFUSING WITH FLUIDS. PT ORDOÑEZ CATHETER NOTED DRAINAGE PER GRAVITY. ALL SAFETY PRECAUTIONS IN PLACE CALL LIGHT IN REACH.
--- NOTE | 2022-07-06 08:02 | NUR ---
PT RESTRAINTS DC. PT FAMILY AT BEDSIDE SITTER TO BE ORDERED.
[2022-07-06 10:30] VITALS: BP 169/98
--- NOTE | 2022-07-06 11:55 | NUR ---
PT CALM PT RESTING WITH FAMILY AT BEDSIDE.
[2022-07-06 15:19] VITALS: BP 158/88
--- NOTE | 2022-07-06 16:00 | NUR ---
PT RESTING IN LOW FOWLERS POSITION PT CALM NO DISTRESS NOTED MAGNESIUM CONTUNUES TO INFUSE.
[2022-07-06 18:41] VITALS: BP 159/83
--- NOTE | 2022-07-06 19:00 | NUR ---
REPORT RECIEVED FROM DAYSHIFT NURSE. PT NOTED LAYING IN BED, FOWLERS. PT IS A/OX2, RESPONDING WITH GARBLED SPEECH. PT ON ROOM AIR, ORDOÑEZ CATHETER PRESENT AND DOUBLE LUMEN PICC LINE ASSESSED IN RT BRACHIAL. PT DENIES ANY PAIN AT THIS TIME. ASSESSMENT COMPLETED ON PT. SAFETY PRECAUTIONS IN PLACE AND CALL LIGHT WITHIN REACH.
[2022-07-07 00:08] VITALS: BP 178/87
--- NOTE | 2022-07-07 00:10 | NUR ---
PT RECIEVED ATIVAN PER EMAR ORDERS. PT WAS RESTLESS, CONTINOUSLY ATTEMPTING TO CLIMB OUT OF BED, DUMPING WATER PITCHER, AND REPEATEDLY TAKING OFF TELEMENTRY MONITOR. PT IS NOW LAYING IN BED SUPINE. SAFETY PRECAUTIONS IN PLACE. CALL LIGHT WITHIN REACH AND PT ENCOURAGED TO USE IT. PT BLOODPRESSURE WAS 178/87. SAURABH ASHRAF NOTIFIED AND MEDICATION GIVEN PER EMAR BY SAURABH.
--- NOTE | 2022-07-07 00:18 | NUR ---
PATIENT RESTING IN BED- AWAKE AND WITH GARBLED SPEECH. BP IS ELEVATED AT 178/87, HR-75. MEDICATED WITH APRESOLINE 10MG IVP FOR HTN VIA RIGHT UPPER ARM PICC. BED ALARM IN PLACE FOR PATIENT SAFETY. CALL LIGHT IN REACH, WILL CONT TO MONITOR.
[2022-07-07 01:29] VITALS: BP 144/82
--- NOTE | 2022-07-07 02:52 | NUR ---
PATIENT BED ALARM IS GOING OFF AND RESPONDED TO PATIENT ROOM. PATIENT FOUND RESTLESS PULLING AT ORDOÑEZ CATH. ORDOÑEZ CATH REAJUSTED AND EMPTIED FOR MODERATE AMT OF CLOUDY ERICH URINE. PULSE OX ALSO OFF AND REAPPLIED. MEDICATED FOR AGITATION WITH HALDOL 2MG IVP ORDERED. PICC TO RIGHT UPPER ARM INTACT AND HEALTHY. PATIENT WAS INCONT OF SMALL AMT OF LOOSE GREEN STOOL. PERICARE PROVIDED WITH SOAP AND WATER. ORDOÑEZ CATH CARE WAS DONE. BUTTOCKS IS RED AND BARRIER CREAM APPLIED. LINENS WERE CHANGED. PATIENT IS ORIENTED TO PERSON AND KNOWS HIS BIRTHDATE. SPEECH IS CLEARER THAN EARLIER.
[2022-07-07 04:48] VITALS: BP 98/44
--- NOTE | 2022-07-07 06:26 | NUR ---
PT IS LAYING SUPINE IN BED WITH SITTER PRESENT IN ROOM. PT IS CALM WITH EYES OPEN. NO APPARENT S/S OF DISTRESS AND DENIES ANY PAIN. CALL LIGHT WITHIN REACH, ORDOÑEZ INTACT, AND SAFETY PRECAUTIONS IN PLACE.
[2022-07-07 06:28] VITALS: BP 148/65
--- NOTE | 2022-07-07 07:39 | NUR ---
PT RESTING IN LOW FOWLERS POSITIO PT CALM ORITENTED TO SELF. ASSESSMENT COMPLETED. HEART RHYTHM ON TELE. RESPIRATIONS ON ROOM AIR. PICC LINE NOTED. BLOOD DRAWN FOR LABS LAB CALLED. PT URINARY CATH IN PLACE. ALL SAFETY PRECAUTIONS IN PLACE BED ALARM ACTIVE.
[2022-07-07 07:53] LABS: HEMATOCRIT 24.8 % (39.0-50.0); HEMOGLOBIN 8.2 g/dl (14.0-18.0); MEAN CELL VOLUME 107.4 fL CALC (80.0-100.0); MEAN CORPUSCULAR HGB 35.5 pG CALC (26.0-32.0); MEAN CORPUSCULAR HGB CONC 33.1 g/dL CAL (32.0-36.0); RED BLOOD COUNT 2.31 mill/uL (4.70-6.10); RED CELL DISTRI WIDTH 14.3 % (11.5-15.5)
[2022-07-07 08:08] LABS: ALBUMIN 2.2 g/dL (3.2-5.0); ALKALINE PHOSPHATASE 436 u/l (38-126); ANION GAP 8 (6-22 (CALC)); BILIRUBIN, TOTAL 0.8 mg/dL (0.0-1.4); BUN 14 mg/dL (9-20); BUN/CREATININE RATIO 18 (12-20 (CALC)); CARBON DIOXIDE 28 mmol/l (22-30); CHLORIDE 114 mmol/l (95-108); CREATININE 0.8 mg/dL (0.7-1.3); GFR FOR AFR.AMER. > 60 ML/MIN (>=60 (CALC)); GFR OTHER RACES > 60 ML/MIN (>=60 (CALC)); MAGNESIUM 1.5 mg/dL (1.6-2.3); POTASSIUM 3.1 mmol/l (3.5-5.1); SGOT/AST 65 u/l (17-59); SODIUM 147 mmol/l (137-146); TOTAL PROTEIN 5.3 g/dL (6.3-8.2)
[2022-07-07 10:18] VITALS: BP 168/84
--- NOTE | 2022-07-07 12:24 | NUR ---
PT RESTING IN HIGH FOWLERS POSITION. PT ORDOÑEZ DC. PER ORDER. PT TOLERATED WELL.
[2022-07-07] MEDS ORDERED: LIBRIUM25 MG PO (13:03)
[2022-07-07] MEDS ORDERED: METFORMIN500 M2 PO (13:03)
--- NOTE | 2022-07-07 15:31 | NUR ---
PT URINATED IN BRIEF ONLY 50CC OF URINE CAUGHT. PT NOT RETAINING URINE. PT TO BE DC SOON.
--- NOTE | 2022-07-07 16:13 | NUR ---
PT TO BE DC ,PICC LINE TO BE REMOVED BY RN.
--- NOTE | 2022-07-07 16:20 | NUR ---
Discharge instructions given. Patient verbalizes understanding of same. Discharged in condition via Wheelchair to Home with staff. All belongings sent with pt. picc line removed per rn/cc. tele removed per cc.
[2022-07-08] MEDS ORDERED: MOTRIN800 MG PO (03:48)
== END 2022-07-07 16:40 | disposition home or self-care (01) | DRG 871 ==
LOC: ED 12:46 → ED-I 16:50 → ED 17:06 → ICU 17:07 → MS2 07-03 18:13
PROVIDERS: Family Medicine; Internal Medicine; ADMIT Internal Medicine; ATTEND Internal Medicine
PROC: 0T9B70Z Drainage of Bladder with Drainage Device, Via Natural or Artificial Opening (ICD-10-PCS; principal; 2022-06-27)
PROC: 02HV33Z Insertion of Infusion Device into Superior Vena Cava, Percutaneous Approach (ICD-10-PCS; 2022-07-02)
PROC: B518ZZA Fluoroscopy of Superior Vena Cava, Guidance (ICD-10-PCS; 2022-07-02)
PROC: 5A09357 Assistance with Respiratory Ventilation, Less than 24 Consecutive Hours, Continuous Positive Airway Pressure (ICD-10-PCS; 2022-07-02)
DX: A41.9 Sepsis, unspecified organism (principal); E11.10 Type 2 diabetes mellitus with ketoacidosis without coma; J96.01 Acute respiratory failure with hypoxia; E43 Unspecified severe protein-calorie malnutrition; J18.9 Pneumonia, unspecified organism; F10.231 Alcohol dependence with withdrawal delirium; K86.0 Alcohol-induced chronic pancreatitis; E87.20 Acidosis, unspecified; R65.20 Severe sepsis without septic shock; K70.10 Alcoholic hepatitis without ascites; I10 Essential (primary) hypertension; R56.9 Unspecified convulsions; M10.9 Gout, unspecified; F17.200 Nicotine dependence, unspecified, uncomplicated; Y90.0 Blood alcohol level of less than 20 mg/100 ml; Z86.73 Personal history of transient ischemic attack (TIA), and cerebral infarction without residual deficits; Z20.822 Contact with and (suspected) exposure to COVID-19; D64.9 Anemia, unspecified; E83.42 Hypomagnesemia; E87.6 Hypokalemia; J32.0 Chronic maxillary sinusitis; E87.8 Other disorders of electrolyte and fluid balance, not elsewhere classified; Z68.26 Body mass index [BMI] 26.0-26.9, adult
CPT/HCPCS: J2060; J3475

== ENCOUNTER 2022-07-08 03:27 | Observation (INO) | payer SELFPAY ==
[~2022-07-08] VITALS: Ht 170.2 cm; Wt 78.2 kg
[2022-07-08] VITALS (13 sets, daily range): BP systolic 142–178; BP diastolic 87–120
[~2022-07-08 03:27] MED LIST changes: +ASPIRIN81 MG PO; +ATENOLOL25 MG PO; +COLCHICINE0.6 M2 PO; +LIBRIUM25 MG PO; +METFORMIN500 M2 PO; +PEPCID20 MG PO; +PROTONIX40 M2 PO; +SERTRALINE50 MG PO; +SUCRALFATE1 GM PO
[2022-07-08] MEDS ORDERED: MOTRIN800 MG PO (03:48)
[2022-07-08 04:09] LABS: BASO% 0.3 % (0-3); EOS% 0.9 % (0-8); IMMATURE GRANULOCYTES 0.9 % (0.0-5.0); LYMPH% 11.3 % (15-41); MEAN CELL VOLUME 109.9 fL CALC (80.0-100.0); MEAN CORPUSCULAR HGB 35.8 pG CALC (26.0-32.0); MEAN CORPUSCULAR HGB CONC 32.6 g/dL CAL (32.0-36.0); MONO% 3.1 % (2-13); NEUT# 11.7 thou/uL (1.82-7.42); NEUT% 83.5 % (42-76); RED BLOOD COUNT 3.35 mill/uL (4.70-6.10); RED CELL DISTRI WIDTH 14.3 % (11.5-15.5)
[2022-07-08 04:10] LABS: HEMATOCRIT 36.8 % (39.0-50.0)
[2022-07-08 04:17] LABS: ALBUMIN 3.2 g/dL (3.2-5.0); ALKALINE PHOSPHATASE 725 u/l (38-126); ANION GAP 11 (6-22 (CALC)); BILIRUBIN, TOTAL 1.2 mg/dL (0.0-1.4); BUN 14 mg/dL (9-20); BUN/CREATININE RATIO 18 (12-20 (CALC)); CARBON DIOXIDE 27 mmol/l (22-30); CHLORIDE 111 mmol/l (95-108); CREATININE 0.8 mg/dL (0.7-1.3); GFR FOR AFR.AMER. > 60 ML/MIN (>=60 (CALC)); GFR OTHER RACES > 60 ML/MIN (>=60 (CALC)); POTASSIUM 4.2 mmol/l (3.5-5.1); SGOT/AST 143 u/l (17-59); SODIUM 145 mmol/l (137-146); TOTAL PROTEIN 7.5 g/dL (6.3-8.2)
[2022-07-08 04:35] LABS: URINE BILIRUBIN - DIPSTICK NEGATIVE (NEGATIVE); URINE BLOOD DIPSTICK SMALL (NEGATIVE); URINE COLOR YELLOW; URINE GLUCOSE - DIPSTICK NEGATIVE (NEGATIVE); URINE KETONE NEGATIVE (NEGATIVE); URINE LEUK ESTERASE NEGATIVE (NEGATIVE); URINE PH 5.5 (4.5-8.0); URINE PROTEIN - DIPSTICK TRACE mg/dL (NEG-TRACE); URINE SPECIFIC GRAVITY >=1.030; URINE UROBILINOGEN - DIPSTICK 0.2 E.U./dL (0.2)
[2022-07-08 04:37] LABS: URINE NITRITE - DIPSTICK NEGATIVE (Negative)
[2022-07-08 04:55] LABS: URINE BACTERIA FEW hpf; URINE SQUAMOUS EPITHELIAL CELL FEW EPI/hpf (0-FEW); URINE YEAST MODERATE hpf
[2022-07-09] VITALS (8 sets, daily range): BP systolic 122–162; BP diastolic 71–94
[2022-07-09 05:04] LABS: BASO% 0.2 % (0-3); EOS% 4.4 % (0-8); IMMATURE GRANULOCYTES 0.3 % (0.0-5.0); LYMPH% 14.3 % (15-41); MEAN CELL VOLUME 108.9 fL CALC (80.0-100.0); MEAN CORPUSCULAR HGB 35.1 pG CALC (26.0-32.0); MEAN CORPUSCULAR HGB CONC 32.3 g/dL CAL (32.0-36.0); MONO% 4.2 % (2-13); NEUT# 7.29 thou/uL (1.82-7.42); NEUT% 76.6 % (42-76); RED BLOOD COUNT 2.59 mill/uL (4.70-6.10); RED CELL DISTRI WIDTH 14.1 % (11.5-15.5)
[2022-07-09 05:13] LABS: INTERNATIONAL NORMALIZED RATIO 1.3 RATIO (0.7-1.3); PROTHROMBIN TIME 12.9 SECONDS (9.0-12.5)
[2022-07-09 05:15] LABS: HEMATOCRIT 28.2 % (39.0-50.0); HEMOGLOBIN 9.1 g/dl (14.0-18.0)
[2022-07-09 05:18] LABS: ALKALINE PHOSPHATASE 562 u/l (38-126); BUN 11 mg/dL (9-20); BUN/CREATININE RATIO 17 (12-20 (CALC)); CARBON DIOXIDE 28 mmol/l (22-30); CHLORIDE 109 mmol/l (95-108); CREATININE 0.7 mg/dL (0.7-1.3); GFR FOR AFR.AMER. > 60 ML/MIN (>=60 (CALC)); GFR OTHER RACES > 60 ML/MIN (>=60 (CALC)); SGOT/AST 143 u/l (17-59); SODIUM 142 mmol/l (137-146)
[2022-07-09 05:24] LABS: ALBUMIN 2.4 g/dL (3.2-5.0); ANION GAP 8 (6-22 (CALC)); BILIRUBIN, TOTAL 0.6 mg/dL (0.0-1.4); POTASSIUM 2.7 mmol/l (3.5-5.1); TOTAL PROTEIN 5.6 g/dL (6.3-8.2)
[2022-07-10] VITALS (7 sets, daily range): BP systolic 144–172; BP diastolic 84–113
[2022-07-10 05:53] LABS: BASO% 0.5 % (0-3); EOS% 3.4 % (0-8); HEMATOCRIT 28.2 % (39.0-50.0); HEMOGLOBIN 9.4 g/dl (14.0-18.0); IMMATURE GRANULOCYTES 0.5 % (0.0-5.0); LYMPH% 15.4 % (15-41); MEAN CELL VOLUME 107.6 fL CALC (80.0-100.0); MEAN CORPUSCULAR HGB 35.9 pG CALC (26.0-32.0); MEAN CORPUSCULAR HGB CONC 33.3 g/dL CAL (32.0-36.0); MONO% 5.4 % (2-13); NEUT# 7.91 thou/uL (1.82-7.42); NEUT% 74.8 % (42-76); RED BLOOD COUNT 2.62 mill/uL (4.70-6.10); RED CELL DISTRI WIDTH 14.4 % (11.5-15.5)
[2022-07-10 06:00] LABS: ALBUMIN 2.3 g/dL (3.2-5.0); ALKALINE PHOSPHATASE 650 u/l (38-126); ANION GAP 5 (6-22 (CALC)); BILIRUBIN, TOTAL 0.5 mg/dL (0.0-1.4); BUN 9 mg/dL (9-20); BUN/CREATININE RATIO 12 (12-20 (CALC)); CARBON DIOXIDE 29 mmol/l (22-30); CHLORIDE 108 mmol/l (95-108); CREATININE 0.7 mg/dL (0.7-1.3); GFR FOR AFR.AMER. > 60 ML/MIN (>=60 (CALC)); GFR OTHER RACES > 60 ML/MIN (>=60 (CALC)); SGOT/AST 101 u/l (17-59); SODIUM 139 mmol/l (137-146); TOTAL PROTEIN 5.5 g/dL (6.3-8.2)
[2022-07-10] MEDS ORDERED: KLOR-CON M2020 MEQ PO (10:52)
[2022-07-10] MEDS ORDERED: LASIX 40 MG TAB40 MG PO (10:52)
== END 2022-07-10 15:49 | DRG 92 ==
LOC: ED 03:27 → ED-I 03:58 → ED 03:58 → ED-I 06:15 → ED 06:36 → MS2 06:37
PROVIDERS: Emergency Medicine; Internal Medicine; Nurse Practitioner Family; ADMIT Internal Medicine; ATTEND Internal Medicine
DX: G72.81 Critical illness myopathy (principal); F10.27 Alcohol dependence with alcohol-induced persisting dementia; E87.6 Hypokalemia; K70.30 Alcoholic cirrhosis of liver without ascites; R79.89 Other specified abnormal findings of blood chemistry; K70.10 Alcoholic hepatitis without ascites; E11.9 Type 2 diabetes mellitus without complications; Z86.73 Personal history of transient ischemic attack (TIA), and cerebral infarction without residual deficits; Z79.84 Long term (current) use of oral hypoglycemic drugs; Z91.81 History of falling
CPT/HCPCS: G0378; J3475